=== PATIENT | female | born 1985 | race Caucasian/White ===

== ENCOUNTER 2019-06-04 20:46 | Emergency (ER) | payer MEDICAID, OTHER ==
[~2019-06-04] VITALS: Ht 170.2 cm; Wt 63.2 kg
[~2019-06-04 20:46] MED LIST: CLIN-90 PO; CYCL-1 PO; HYDR-4353 PO; KETO10TA2 PO; ONDA4TAB6 PO
[2019-06-04] MEDS ORDERED: AMOX500C2 PO (21:51)
[2019-06-04] MEDS ORDERED: HYDR-3965 PO (21:51)
[2019-06-04] MEDS ORDERED: HYDROcodone/acetaminophen 5mg/325mg tablet PO ONE (22:05)
[2019-06-04 22:23] VITALS: BP 128/80
== END 2019-06-04 22:15 | disposition home or self-care (01) ==
LOC: ER 20:47
DX: K08.89 Other specified disorders of teeth and supporting structures (principal); Z98.890 Other specified postprocedural states; Z88.2 Allergy status to sulfonamides; Z79.899 Other long term (current) drug therapy
CPT/HCPCS: 99283

== ENCOUNTER 2021-07-04 13:47 | Emergency (ER) | payer MEDICAID, OTHER ==
[~2021-07-04] VITALS: Ht 170.2 cm; Wt 56.4 kg
[~2021-07-04 13:47] MED LIST changes: -CLIN-90 PO; +CLIN-97 PO
[2021-07-04 13:50] VITALS: BP 135/83
[2021-07-04 14:13] LABS: BASOPHILS % (AUTO) 0.2 % (0-1); EOSINOPHILS % (AUTO) 0.2 % (0-6); HEMATOCRIT 38.4 % (35.0-45.0); HEMOGLOBIN 12.9 g/dl (12.0-16.0); LYMPHOCYTES # (AUTO) 0.8 X10'3 (1.1-4.8); LYMPHOCYTES % (AUTO) 7.1 % (21-51); MEAN CORPUSCULAR HEMOGLOBIN 30.7 PG (27.0-31.0); MEAN CORPUSCULAR HGB CONC 33.6 g/dL (33.0-36.5); MEAN CORPUSCULAR VOLUME 91.4 FL (78-98); MEAN PLATELET VOLUME 9.1 FL (7.4-10.4); MONOCYTES % (AUTO) 8.5 % (2-12); NEUTROPHILS # (AUTO) 9.4 X10'3 (1.8-7.7); PLATELET COUNT 293 X10'3 (140-440); RED BLOOD COUNT 4.21 X10'6 (4.20-5.60); RED CELL DISTRIBUTION WIDTH 13.5 % (11.5-14.5); WHITE BLOOD COUNT 11.2 X10'3 (4.5-11.0)
[2021-07-04 14:24] LABS: URINE HCG NEGATIVE (NEG)
[2021-07-04 14:28] LABS: ALANINE AMINOTRANSFERASE 20 U/L (12-78); ALBUMIN 3.6 G/DL (3.4-5.0); ALBUMIN/GLOBULIN RATIO 0.8 (1.1-1.5); ALKALINE PHOSPHATASE 80 IU/L (46-116); ASPARTATE AMINO TRANSFERASE 18 U/L (10-37); BILIRUBIN,TOTAL 1.1 MG/DL (0.1-1.0); BLOOD UREA NITROGEN 16 MG/DL (7-18); BUN/CREATININE RATIO 22.9 (6.6-38.0); CALCIUM 9.1 MG/DL (8.5-10.1); CHLORIDE 101 MMOL/L (99-107); GLUCOSE 124 MG/DL (70-104); LIPASE < 50 U/L (73-393); POTASSIUM 3.7 MMOL/L (3.5-5.1); SODIUM 140 MMOL/L (135-145); eGFR > 90 ML/MIN
[2021-07-04 14:29] LABS: ANION GAP 11 (8-16); TOTAL CARBON DIOXIDE 27.7 MMOL/L (24-32)
[2021-07-04 15:35] LABS: CLARITY,URINE CLEAR (Clear); COLOR,URINE YELLOW (Yellow); GLUCOSE, URINE NEGATIVE (Neg); KETONES,URINE NEGATIVE (Neg); LEUKOCYTE ESTERASE ,URINE NEGATIVE (Neg); NITRITES, URINE NEGATIVE (Neg); OCCULT BLOOD,URINE LARGE (Neg); PROTEIN,URINE NEGATIVE (Neg); UROBILINOGEN,URINE 0.2 E.U/dL (0.2-1.0)
[2021-07-04 15:39] LABS: UA COLLECTION TYPE CLN CATCH MIDSTREAM
[2021-07-04 15:44] LABS: BACTERIA,URINE FEW /HPF (Neg); SQUAMOUS EPITHELIAL CELL,UR FEW /LPF (FEW); WBC,URINE NONE SEEN /HPF (0-4)
[2021-07-04] MEDS ORDERED: ondansetron 4mg rapidly disintigrating tab PO ONE (16:45)
[2021-07-04] MEDS ORDERED: HYDROcodone/acetaminophen 5mg/325mg tablet PO ONE (16:45)
[2021-07-04] MEDS ORDERED: ONDA4TAB12 PO (17:45)
[2021-07-04] MEDS ORDERED: HYDR-3965 PO (17:46)
== END 2021-07-04 18:08 | disposition home or self-care (01) ==
LOC: ER 13:47
DX: R10.84 Generalized abdominal pain (principal); R05.9 Cough, unspecified; Z98.890 Other specified postprocedural states; Z88.2 Allergy status to sulfonamides; Z79.2 Long term (current) use of antibiotics; Z79.899 Other long term (current) drug therapy
CPT/HCPCS: 36415; 76700; 80053; 81001; 81025; 83690; 85025; 99284

== ENCOUNTER 2024-07-15 22:42 | Emergency (ER) | payer MEDICAID ==
[~2024-07-15] VITALS: Ht 170.2 cm; Wt 61.4 kg
[~2024-07-15 22:42] MED LIST changes: +ONDA-243 PO
[2024-07-15 23:48] VITALS: BP 132/74; PULSE 88; RESP 16; TEMP 98.4; O2SAT 99
[2024-07-16] MEDS ORDERED: DOXY-460 PO (20:26)
== END 2024-07-15 23:50 | disposition home or self-care (01) ==
LOC: ER 22:43
DX: L72.3 Sebaceous cyst (principal); Z88.2 Allergy status to sulfonamides; Z79.2 Long term (current) use of antibiotics; Z79.899 Other long term (current) drug therapy
CPT/HCPCS: 10060; 99282

== ENCOUNTER 2024-07-16 17:59 | Emergency (ER) | payer MEDICAID ==
[~2024-07-16] VITALS: Ht 170.2 cm; Wt 49.5 kg
[2024-07-16 18:25] VITALS: TEMP 96.8
[2024-07-16] MEDS ORDERED: DOXY-460 PO (20:26)
[2024-07-16] MEDS: LIDOcaine 1% 30ml preserv. free vial SQ STA (20:35)
[2024-07-16 20:36] VITALS: BP 119/49; PULSE 60; RESP 16; O2SAT 98
[2024-07-16] MEDS: DOXYCYCLINE 100MG CAPSULE PO STA (20:40)
== END 2024-07-16 20:52 | disposition home or self-care (01) ==
LOC: ER 18:00
DX: L72.3 Sebaceous cyst (principal); L02.11 Cutaneous abscess of neck; Z88.2 Allergy status to sulfonamides; Z79.899 Other long term (current) drug therapy
CPT/HCPCS: 10060; 99283; A6258; A6449